=== PATIENT | male | born 1970 | race Caucasian/White ===

== ENCOUNTER 2016-10-04 09:36 | Emergency (ER) | payer BC ==
[2016-10-04 09:52] VITALS: BP 144/99
--- NOTE | 2016-10-04 10:13 | UC ---
Hand/Wrist HPI - HPI Summary HPI Summary: While doing yardwork was struck directly on thumb joint with wooden branch then. Since then has had progressively worse pain with a little swelling, very little ROM at this point. Had small amt blood at the time, now pinpoint scab. No prior fx or sx. - History Of Current Complaint Chief Complaint: UCUpperExtremity Stated Complaint: THUMB INJURY Time Seen by Provider: 10/04/16 10:06 Hx Obtained From: Patient ?: No Onset/Duration: Sudden Onset Severity Initially: Mild Severity Currently: Moderate Character Of Pain: Dull, Aching, Stiffness Aggravating Factor(s): Movement Associated Signs And Symptoms: Positive: Swelling, Redness Related History: Dominant Hand Right - for manual tasks, Dominant Hand Left - for writing - Allergies/Home Medications Allergies/Adverse Reactions: Allergies Allergy/AdvReac Type Severity Reaction Status Date / Time Tree Nuts Allergy Swelling Verified 10/04/16 09:52 Of Face,Lips,& Throat Home Medications: Home Medications Amlodipine Besylate [Norvasc 5 mg tab] 5 mg PO DAILY 10/04/16 [History Confirmed 10/04/16] PMH/Surg Hx/FS Hx/Imm Hx Endocrine History Of: Denies: Diabetes, Thyroid Disease, Hyperthyroidism, Hypothyroidism Cardiovascular History Of: Reports: Hypertension Denies: Cardiac Disorders, Pacemaker/ICD Respiratory History Of: Denies: COPD, Asthma GI/ History Of: Denies: Ulcer Neurological History Of: Denies: TIA, Seizures Psychological History Of: Denies: Anxiety, Depression - Surgical History Surgical History: Yes Surgery Procedure, Year, and Place: wisdom teeth(1984), broken arm(1986), lt knee surgery - Family History Known Family History: Positive: Hypertension - Social History Lives: With Family Alcohol Use: Rare Substance Use Type: None Smoking Status (MU): Never Smoked Tobacco Review of Systems Constitutional: Negative Skin: Other - PW Eyes: Negative ENT: Negative Respiratory: Negative Cardiovascular: Negative Gastrointestinal: Negative Genitourinary: Negative Motor: Decreased ROM Neurovascular: Negative Musculoskeletal: Negative Neurological: Negative Psychological: Negative All Other Systems Reviewed And Are Negative: Yes Physical Exam Triage Information Reviewed: Yes Appearance: Well-Appearing, No Pain Distress, Well-Nourished Vital Signs: Initial Vital Signs Temp 97.8 F 10/04/16 09:48 Pulse 60 10/04/16 09:48 Resp 18 10/04/16 09:48 BP 144/99 10/04/16 09:48 Pulse Ox 97 10/04/16 09:48 Vital Signs Reviewed: Yes Eye Exam: Normal Eyes: Positive: Conjunctiva Clear ENT Exam: Normal ENT: Positive: Normal ENT inspection, Hearing grossly normal, Pharynx normal, TMs normal Dental Exam: Normal Neck exam: Normal Respiratory Exam: Normal Respiratory: Positive: Chest non-tender, Lungs clear, Normal breath sounds, No respiratory distress, No accessory muscle use Cardiovascular Exam: Normal Cardiovascular: Positive: RRR, No Murmur Musculoskeletal Exam: Other - tender at R thumb IP joint Musculoskeletal: Positive: ROM Limited @ - thumb IP joint Neurological Exam: Normal Neurological: Positive: Alert Psychological Exam: Normal Skin Exam: Other - PW over R thumb IP joint Hand/Wrist Course/Dx - Differential Dx/Diagnosis Provider Diagnoses: R thumb IP infection due to puncture wound. R thumb contusion - Physician Notifications Discussed Patient Care With: Dr. Lopez Time Discussed With Above Provider: 11:20 Instructed by Provider To: Have Pt Call For Appt. Discharge - Discharge Plan Condition: Stable Disposition: HOME Prescriptions: Cephalexin CAP* [Keflex 500 CAP*] 500 mg PO QID #20 cap Patient Education Materials: Contusion in Adults (ED) Referrals: Harjeet Lopez MD [Medical Doctor] - Additional Instructions: As we discussed, your symptoms may simply be from the crush injury you received from the branch. However, since you have a puncture wound over the joint, I am treating you for possible joint infection and asking you to follow up with the eating disorder specialist. Call them today to make an appointment for tomorrow afternoon. Take the antibiotics I prescribed and keep the hand elevated as much as possible while you await follow-up.
--- NOTE | 2016-10-04 10:32 | RAD ---
INDICATION: Right thumb injury. TECHNIQUE: 3 views of the right thumb were obtained. FINDINGS: There is soft tissue present. The bones are normal alignment. No fracture or radiopaque foreign body is seen. Joint spaces appear maintained. IMPRESSION: SOFT TISSUE SWELLING, NO FRACTURE OR RADIOPAQUE FOREIGN BODY IS SEEN.
== END 2016-10-04 11:35 | disposition home or self-care (01) ==
LOC: UCEAST 09:36
DX: S61.011A Laceration without foreign body of right thumb without damage to nail, initial encounter (principal); L08.9 Local infection of the skin and subcutaneous tissue, unspecified; W22.8XXA Striking against or struck by other objects, initial encounter; Y93.9 Activity, unspecified; Y99.9 Unspecified external cause status; I10 Essential (primary) hypertension; Z91.018 Allergy to other foods
CPT/HCPCS: 99212; G0463

== ENCOUNTER 2018-05-17 15:31 | Emergency (ER) | payer BC ==
--- OUTSIDE RECORDS SUMMARY | 2018-05-17 15:41 | XMS REPORT | Continuity of Care Document ---
:1970 External Reference #:[id number] Author Name Tutu Mast D.O. Address [address] [place] [address] Care Team Providers Name Role Phone HCP given Primary Care Physician Unavailable Payers Type Date Identification Numbers Payment Provider Subscriber Policy Number: [id number] Cordelia Nichole PayID: [id number] [address] [place] [address] Advance Directives Description No Information Available Problems Date Description Provider Status Onset: 07/31/2004 Asthma without status asthmaticus Thomas Velazquez M.D. Active Onset: 04/08/2015 Essential hypertension Thomas Velazquez M.D. Active Family History Date Family Member(s) Problem(s) Comments Father None Father Hypertension Mother Breast Cancer in remission tested for breast cancer gene and was pos - pos fam hx in cousins of hers- he was advised that he is at some increased risk if positive (he has not been tested) and that gene may be passed onto his daughter : (2014) Mother due to Stroke hemorrhagic no hbp and (age 75 Years) chol was fine First Daughter Micheline First Daughter 04/10/02 Number of Siblings Siblings: 2 Brother And 1 Sister PT Is 2ND Of Three Children Order Patient is the second of three children First Brother None First Sister None Paternal Grandfather CABG,Stroke Maternal Grandmother Lung Cancer Social History Type Date Description Comments Sex Unknown Education Highest Level Completed NOS College Marital Status Lives With Spouse Lives With Daughter Diet Healthy, Well Balanced WATCHES SALT Diet Diet Recall 24 HR supper ham mashed pot and corn w water after supper - cup hot deena breakfast cheerios and coffee lunch=salad, cooked chicken, soda Smoke-Free Home is smoke-free Work Status 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 Tobacco Use Start: Unknown Never Smoked Cigarettes Tobacco Use Reviewed: 06/02/15 Denies Cigarette Use Smoking Status Reviewed: 05/06/18 Denies Cigarette Use ETOH Use Rarely consumes alcohol Recreational Drug Use Denies Drug Use Tobacco Use Start: Unknown Patient has never smoked Exercise Type/Frequency Exercises sporadically WALKS ADVISED TO ENGAGE IN 30-MIN 5X /WK. does 10,000 steps a day Sun Exposure Uses sunscreen Seat Belt/Car Seat always uses seat belt Currently Active Patient is currently sexually active Contraceptive Methods 08/2009 Vasectomy Allergies, Adverse Reactions, Alerts Description No Known Drug Allergies Medications Medication Date Status Form Strength Qnty SIG Indications Ordering Provider Transderm-Scop 05/06/ Hx Patches 1mg/3Days 6unit apply 1 Sopchak, (1.5 MG) 2018 - 72HR s patch to Tutu, 06/05/ hairless D.O. 2019 area behind the ear at least 4 hours prior to exposure and every 3 days as needed Losartan 12/09/ Active Tablets 100mg 90tab take one I10 Sopchak, Potassium 2018 s tablet by Tutu, mouth every D.O. morning for high blood pressure (to replace valsartan) Chlorthalidone 10/30/ Active Tablets 25mg 90tab 1 by mouth Sopchak, 2018 s every day Tutu, D.O. Amlodipine 10/03/ Active Tablets 5mg 90tab take 1 Sopchak, Besylate 2018 s tablet by Tutu, mouth once D.O. daily for high blood pressure Proventil HFA 10/02/ Active Aerosol 108(90Bas 13.4g inhale 2 J45.909 Thomas 2016 e) m puffs by A. mcg/Act mouth every Klepack, 3-4 hours M.D. as needed for asthma Valsartan 10/03/ Hx Tablets 160mg 90tab 1 by mouth Sopchak, 2018 - s every day Tutu, 12/09/ D.O. 2018 Cephalexin 10/04/ Hx Capsules 500mg 20cap take 1 Unknown 2017 - s capsule by 10/09/ mouth four 2017 times a day x 5 days Doxycycline 03/15/ Hx Capsules 100mg 42cap 1 every day Z71.89 Thomas Hyclate 2015 - starting 2 A. 05/14/ days before Caroline, 2015 travel and M.D. every day for 4 weeks after returning Typhoid Vaccine 03/15/ Hx 4unit 1 every Z71.89 Thomas Live Oral 2015 - s other day A. 06/06/ for 4 doses Caroline, 2016 M.D. Amlodipine 05/23/ Hx Tablets 5mg 90tab 1 every day I10 Sopshalondak Besylate 2015 - for blood Tutu, 10/03/ pressure D.O. 2017 Amlodipine 04/21/ Hx Tablets 10mg 90tab 1 by mouth I10 Thomas Besylate 2014 - s every day A. 05/23/ (note Caroline, 2015 change in M.D. strength of pill) Amlodipine 04/02/ Hx Tablets 5mg 90tab take 2 I10 Sopshalondak Besylate 2014 - tablet by Tutu, 04/21/ mouth once D.O. 2014 daily for high blood pressure Clarithromycin 09/09/ Hx 250mg 20uni 1 po bid 466.0 Thomas 2010 - until gone A. 09/19/ Caroline 2010 M.D. use this instead of the brand name Benzonatate 05/16/ Hx Capsules 200mg 30cap 1 po tid, 786.2 Ankush, 2009 - s prn Phillip 05/22/ M.D. 2010 Amoxicillin 10/28/ Hx Capsules 500mg 40cap 2 tab po 461.8 Ankush 2009 - s bid x 10 Phillip, 05/22/ days M.D. 2010 Tamiflu 11/08/ Hx Capsules 75mg 10cap 1 po qd V07.2 Thomas 2008 - s A. 07/06/ Caroline 2009 M.D. Metronidazole 08/13/ Hx Tablets 250mg 21tab 1 tid x 7d 787.91 Thomas 2008 - s A. 08/20/ Caroline, 2008 M.D. Cipro 08/03/ Hx Tablets 500mg/ 787.91 Unknown 2008 - 2008 Metronidazole 08/03/ Hx Tablets 500mg 42tab 1 po bid 787.91 Unknown 2008 - s 2008 Zithromax 04/01/ Hx Tablets 250mg 1Pack Two Tablets 466.0 Thomas 2007 - PO Day 1 A. 04/08/ Then 1 Caroline 2007 Tablet PO M.D. Day 2-5 Amoxicillin 09/25/ Hx Tablets 500mg 30tab 1 PO tid 461.0 Ankush 2007 - s For Phillip, 10/05/ Sinusitis M.D. 2007 Amoxicillin 09/11/ Hx Capsules 500mg 28cap 1 tid for 461.0 Thomas 2005 - s 14 days for A. 09/25/ infection Caroline 2004 M.D. Albuterol 08/01/ Hx Aerosol 90mcg/Dos 2unit 2 puffs q4h J45.909 Thomas 1985 - e s for A. 10/02/ wheezing Caroline 2016 Prevention Annette Medications Administered in Office Medication Date Status Form Strength Qnty SIG Indications Ordering Provider H1N1 Swine Flu Administered Injection Nurse's Vaccine 010 Schedule Immunizations CPT Code Status Date Vaccine Lot # [id number] Given 02/17/2018 Influenza Virus Vaccine, Quadrivalent, Split, Im Use 02919 Given 03/01/2017 Influenza Virus Vaccine, Quadrivalent, Split, Preservative Free 08563 Given 10/05/2016 Hep A, Adult [id number] 51528 Given 03/16/2016 Typhoid Vaccine Oral 17520 Given 03/15/2016 Hep A, Adult [id number] 04198 Given 02/20/2016 Influenza Virus Vaccine, Quadrivalent, Split, Im Use U-Flu Given 03/08/2015 Influenza,Unspecified 24333 Given 03/23/2013 Flu, Split Virus >3 State Vaccine 21104 Given 09/09/2010 Pneumococcal Immunization [id number] 65447 Given 06/20/2009 Flu Vaccine; Split Virus OKpanda [facility] [id number] 20900 Given 04/07/2008 Adacel or Boostrix, TDaP [id number] 00284 Given 01/31/2005 Td Immunization 01382 Given 07/31/2004 Hep B Immunization, Adult 87243 Given 07/31/2004 Td Immunization Vital Signs Date Vital Result Comment 05/06/2018 11:44am BP Systolic 120 mmHg BP Diastolic 70 mmHg Weight 201.00 lb with shoes 11/04/2017 3:01pm BP Systolic 144 mmHg BP Diastolic 76 mmHg BP Systolic Recheck 115 mmHg BP Diastolic Recheck 78 mmHg Weight 194.00 lb 10/30/2017 10:18am BP Systolic 135 mmHg in am at home BP Diastolic 93 mmHg in am at home 10/29/2017 10:17am BP Systolic 138 mmHg at home in am BP Diastolic 98 mmHg at home in am 10/23/2017 3:51pm BP Systolic 150 mmHg per pt reporting BP Diastolic 101 mmHg per pt reporting BP Systolic Recheck 145 mmHg BP Diastolic Recheck 105 mmHg 10/22/2017 3:51pm BP Systolic 145 mmHg BP Diastolic 105 mmHg 10/07/2017 12:22pm BP Systolic 130 mmHg per pt reporting BP Diastolic 90 mmHg per pt reporting 10/03/2017 11:05am BP Systolic 146 mmHg BP Diastolic 96 mmHg BP Systolic Recheck 147 mmHg BP Diastolic Recheck 100 mmHg Height 68 inches 5'8" Weight 199.00 lb BMI (Body Mass Index) 30.3 kg/m2 07/17/2017 4:42pm BP Systolic 152 mmHg right arm BP Diastolic 85 mmHg right arm Body Temperature 98.6 F 04/05/2017 8:58am BP Systolic 134 mmHg BP Diastolic 90 mmHg Height 68 inches 5'8" Weight 197.00 lb BMI (Body Mass Index) 30.0 kg/m2 10/05/2016 10:59am BP Systolic 130 mmHg k BP Diastolic 82 mmHg k Heart Rate 70 /min rrr Weight 197.00 lb w/shoes 06/07/2016 9:12am BP Systolic 128 mmHg BP Diastolic 88 mmHg Heart Rate 80 /min Respiratory Rate 16 /min Body Temperature 98.3 F Height 69.25 inches 5'9.25" with boots Weight 199.00 lb with boots BMI (Body Mass Index) 29.2 kg/m2 03/05/2016 9:09am BP Systolic 128 mmHg BP Diastolic 82 mmHg Height 68 inches 5'8" Weight 192.00 lb BMI (Body Mass Index) 29.2 kg/m2 10/03/2015 9:06am BP Systolic 132 mmHg BP Diastolic 82 mmHg Weight 192.00 lb with sneakers 06/02/2015 10:37am BP Systolic 126 mmHg BP Diastolic 80 mmHg Heart Rate 70 /min Respiratory Rate 16 /min Height 68 inches 5'8" Weight 190.00 lb BMI (Body Mass Index) 28.9 kg/m2 05/23/2015 4:31pm BP Systolic 128 mmHg BP Diastolic 76 mmHg 05/06/2015 9:01am BP Systolic 124 mmHg K BP Diastolic 76 mmHg K Heart Rate 70 /min Respiratory Rate 16 /min Weight 190.00 lb w/shoes 04/08/2015 8:43am BP Systolic 138 mmHg BP Diastolic 90 mmHg Weight 190.00 lb with sneakers 04/02/2015 11:04am BP Systolic 130 mmHg BP Diastolic 82 mmHg BP Systolic Recheck 148 mmHg right arm recheck BP Diastolic Recheck 95 mmHg right arm recheck BP Systolic Standing Resting Right Arm 138 mmHg left arm recheck BP Diastolic Standing Resting Right Arm 98 mmHg left arm recheck Heart Rate 70 /min Height 69 inches 5'9" Weight 190.00 lb BMI (Body Mass Index) 28.1 kg/m2 04/28/2013 2:17pm BP Systolic 140 mmHg BP Diastolic 90 mmHg BP Systolic Recheck 144 mmHg BP Diastolic Recheck 88 mmHg Height 69 inches 5'9" Weight 178.00 lb BMI (Body Mass Index) 26.3 kg/m2 09/09/2010 11:01am BP Systolic 124 mmHg BP Diastolic 88 mmHg Body Temperature 98.1 F Height 68.25 inches 5'8.25" Weight 180.00 lb BMI (Body Mass Index) 27.2 kg/m2 05/16/2010 11:00am BP Systolic 126 mmHg BP Diastolic 72 mmHg Heart Rate 93 /min Body Temperature 100.4 F Weight 179.00 lb 10/28/2009 4:15pm BP Systolic 129 mmHg BP Diastolic 86 mmHg Heart Rate 80 /min Respiratory Rate 18 /min Body Temperature 98.8 F Weight 175.00 lb 09/28/2009 8:42am BP Systolic 128 mmHg BP Diastolic 70 mmHg Weight 175.00 lb w/sneakers 07/07/2009 2:05pm BP Systolic 142 mmHg BP Diastolic 84 mmHg BP Systolic Recheck 144 mmHg BP Diastolic Recheck 80 mmHg Heart Rate 70 /min Respiratory Rate 16 /min Height 67.75 inches 5'7.75" Weight 182.00 lb BMI (Body Mass Index) 27.9 kg/m2 08/13/2008 9:57am BP Systolic 110 mmHg BP Diastolic 80 mmHg Body Temperature 98.6 F Weight 175.00 lb Last Menstrual Period 0 08/06/2008 1:10pm BP Systolic 120 mmHg BP Diastolic 82 mmHg Weight 178.00 lb 04/01/2008 1:45pm BP Systolic 118 mmHg BP Diastolic 80 mmHg Body Temperature 98.2 F Height 68.6 inches 5'8.60" Weight 178.00 lb BMI (Body Mass Index) 26.6 kg/m2 Last Menstrual Period 0 12/22/2007 10:59am BP Systolic 130 mmHg BP Diastolic 78 mmHg Heart Rate 80 /min Respiratory Rate 16 /min Height 68.6 inches 5'8.60" Weight 179.00 lb BMI (Body Mass Index) 26.7 kg/m2 09/26/2007 1:20pm BP Systolic 138 mmHg BP Diastolic 80 mmHg Body Temperature 98.5 F Height 70 inches 5'10" Weight 177.00 lb BMI (Body Mass Index) 25.4 kg/m2 Last Menstrual Period 0 09/11/2004 1:54pm BP Systolic 128 mmHg BP Diastolic 74 mmHg Heart Rate 80 /min Respiratory Rate 16 /min Body Temperature 98.3 F Height 70 inches 5'10" Weight 182.00 lb BMI (Body Mass Index) 26.1 kg/m2 07/31/2004 10:46am BP Systolic 128 mmHg BP Diastolic 90 mmHg BP Systolic Recheck 134 mmHg Large Cuff BP Diastolic Recheck 72 mmHg Large Cuff Heart Rate 80 /min RRR Respiratory Rate 16 /min Easy Height 70 inches 5'10" Weight 185.00 lb Waist 38 In WGT AT [place] 170-75 BMI (Body Mass Index) 26.5 kg/m2 Results Test Date Facility Test Result H/L Range Note Basic Metabolic Panel 11/15/2017 [facility] Sodium 138 mmol/L N 135- 145 [phone] Potassium 3.5 mmol/L N 3.5-5.0 Chloride 99 mmol/L Low 101-111 Co2 Carbon Dioxide 31 mmol/L N 22-32 Anion Gap 8 mmol/L N 2-11 Glucose 102 mg/dL High 70-100 Blood Urea Nitrogen 23 mg/dL N 6-24 Creatinine 0.86 mg/dL N 0.67-1.17 BUN/Creatinine Ratio 26.7 High 8-20 Calcium 9.6 mg/dL N 8.6-10.3 Egfr Non- 95.3 >60 Egfr 115.3 >60 1 Lipid Profile (Trig/Chol/HDL) 09/25/2017 [facility] Triglycerides 176 mg/dL 2 [phone] Cholesterol 202 mg/dL 3 HDL Cholesterol 40.4 mg/dL 4 LDL Cholesterol 126 mg/dL 5 Basic Metabolic Panel 09/25/2017 [facility] Sodium 139 mmol/L N 139- 145 [phone] Potassium 4.2 mmol/L N 3.5-5.0 Chloride 103 mmol/L N 101-111 Co2 Carbon Dioxide 28 mmol/L N 22-32 Anion Gap 8 mmol/L N 2-11 Glucose 88 mg/dL N 70-100 Blood Urea Nitrogen 17 mg/dL N 6-24 Creatinine 0.91 mg/dL N 0.67-1.17 BUN/Creatinine Ratio 18.7 N 8-20 Calcium 9.5 mg/dL N 8.6-10.3 Egfr Non- 89.3 >60 Egfr 114.8 >60 6 Rapid Influenza A 07/18/2017 [facility] Influenza A NEGATIVE Negative 7 & B Molecular [phone] Molecular Influenza B Molecular NEGATIVE Negative Laboratory test 07/17/2017 [facility] Influenza A & B SEE RESULT 8 finding [phone] Request BELOW Urine Micro Inhouse 10/05/2016 In House Ua WBC - 9 Ua RBC - Ua Casts - Ua Epi - Ua Other - Ua Glucose - Ua Bilirubin - Ua Ketones - Ua Specific [place] 1.020 Ua Blood - Ua PH 6.0 Ua Protein tr Ua Urobilinogen - Ua Nitrite - Ua Leukocytes - Urine Micro Inhouse 06/07/2016 In House Ua WBC - Ua RBC - Ua Casts - Ua Epi - Ua Other - Ua Glucose -- Ua Bilirubin - Ua Ketones 1.020 Ua Specific [place] - Ua Blood 6.0 Ua PH - Ua Protein - Ua Urobilinogen - Ua Nitrite - Basic Metabolic Panel 03/05/2016 [facility] Sodium 138 mmol/L N 133- 145 [phone] Potassium 4.3 mmol/L N 3.5-5.0 Chloride 103 mmol/L N 101-111 Co2 Carbon Dioxide 29 mmol/L N 22-32 Anion Gap 6 mmol/L N 2-11 Glucose 96 mg/dL N 70-100 Blood Urea Nitrogen 15 mg/dL N 6-24 Creatinine 0.78 mg/dL N 0.67-1.17 BUN/Creatinine Ratio 19.2 N 8-20 Calcium 9.6 mg/dL N 8.6-10.3 Egfr Non- 107.2 N >60 Egfr 137.8 N >60 10 Laboratory test finding 03/05/2016 [facility] Ast (Sgot) 20 U/L N 13- 39 11 [phone] Lipid Profile 03/05/2016 [facility] Triglycerides 160 mg/dL N 12 (Trig/Chol/HDL) [phone] Cholesterol 169 mg/dL N 13 HDL Cholesterol 38.9 mg/dL N 14 LDL Cholesterol 98 mg/dL N 15 Urine Micro Inhouse 10/03/2015 In House Ua WBC - Ua RBC - Ua Casts - Ua Epi - Ua Other - Ua Glucose - Ua Bilirubin - Ua Ketones - Ua Specific [place] 1.025 Ua Blood - Ua PH 5.0 Ua Protein tr Ua Urobilinogen - Ua Nitrite - Ua Leukocytes - Occult Blood,Triple 07/19/2015 In House Misc negative x3 Urine Micro Inhouse 06/02/2015 In House Ua WBC - Ua RBC - Ua Casts - Ua Epi - Ua Other - Ua Glucose - Ua Bilirubin - Ua Ketones - Ua Specific [place] 1.010 Ua Blood - Ua PH 6.5 Ua Protein - Ua Urobilinogen - Ua Nitrite - Ua Leukocytes - Urine Micro Inhouse 04/08/2015 In House Ua WBC - Ua RBC - Ua Casts - Ua Epi - Ua Other - Ua Glucose - Ua Bilirubin - Ua Ketones - Ua Specific [place] 1.015 Ua Blood tr Ua PH 6.5 Ua Protein tr Ua Urobilinogen 0.2 Ua Nitrite - Ua Leukocytes - Lipid Profile 04/05/2015 [facility] Triglycerides 124 mg/dL N 16 (Trig/Chol/HDL) [phone] Cholesterol 192 mg/dL N 17 HDL Cholesterol 39.5 mg/dL N 18 LDL Cholesterol 128 mg/dL N 19 Laboratory test 04/05/2015 [facility] TSH (Thyroid 1.25 ?IU/mL N 0.34 -5.60 20 finding [phone] Stim Horm) Vitamin D Total 25(Oh) 16.6 ng/mL Low 30-50 21 Comp Metabolic Panel 04/05/2015 [facility] Sodium 137 mmol/L N 133- 145 [phone] Potassium 4.7 mmol/L N 3.5-5.0 Chloride 103 mmol/L N 101-111 Co2 Carbon Dioxide 28 mmol/L N 22-32 Anion Gap 6 mmol/L N 2-11 Glucose 83 mg/dL N 70-100 Blood Urea Nitrogen 21 mg/dL N 6-24 Creatinine 0.96 mg/dL N 0.67-1.17 BUN/Creatinine Ratio 21.9 High 8-20 Calcium 9.5 mg/dL N 8.6-10.3 Total Protein 6.8 g/dL N 6.4-8.9 Albumin 4.4 g/dL N 3.2-5.2 Globulin 2.4 g/dL N 2-4 Albumin/Globulin Ratio 1.8 N 1-3 Total Bilirubin 0.40 mg/dL N 0.2-1.0 Alkaline Phosphatase 72 U/L N 34-104 Alt 23 U/L N 7-52 Ast 17 U/L N 13-39 Egfr Non- 84.7 N >60 Egfr 108.9 N >60 22 CBC Auto Diff 04/05/2015 [facility] White Blood Count 4.9 10^3/uL N 4.8-10.8 [phone] Red Blood Count 5.42 10^6/uL High 4.0-5.4 Hemoglobin 15.9 g/dL N 14.0-18.0 Hematocrit 47 % N 42-52 Mean Corpuscular Volume 87 fL N 80-94 Mean Corpuscular Hemoglobin 29 pg N 27-31 Mean Corpuscular HGB Conc 33 g/dL N 31-36 Red Cell Distribution Width 14 % N 10.5-15 Platelet Count 218 10^3/uL N 150-450 Mean Platelet Volume 8 um3 N 7.4-10.4 Abs Neutrophils 2.5 10^3/uL N 1.5-7.7 Abs Lymphocytes 1.8 10^3/uL N 1.0-4.8 Abs Monocytes 0.5 10^3/uL N 0-0.8 Abs Eosinophils 0.2 10^3/uL N 0-0.6 Abs Basophils 0 10^3/uL N 0-0.2 Abs Nucleated RBC 0 10^3/uL N Granulocyte % 50.2 % N 38-83 Lymphocyte % 35.7 % N 25-47 Monocyte % 9.9 % High 1-9 Eosinophil % 3.6 % N 0-6 Basophil % 0.6 % N 0-2 Nucleated Red Blood Cells % 0.1 N Surgical 09/09/2009 [facility] Surgical 23 Pathology [phone] Pathology <SEE NOTE> Order 07/07/2009 [facility] Bronchospasm mild restric only Eval Stool Cult 08/03/2008 [facility] Stool Cult neg 24 [phone] Sensitivity Laboratory 08/03/2008 [facility] C. Difficile NEG 25 test finding [phone] Toxin A B O P: Giardia/Crypto Screen neg 26 Shiga Toxin 1 And 2 (Ehec) N^NEGATIVE BY IM <SEE NOTE> 27 E.Coli 0157:H7 NEGATIVE FOR E C <SEE NOTE> 28 Campylobacter NO GROWTH OF CAM <SEE NOTE> 29 Stool Specimen 08/03/2008 [facility] Stool Specimen P^PASTY^STCON 30 Description [phone] Description Laboratory test 08/03/2008 [facility] Stool For WBCS RARE POLY Negative finding [phone] (Polys) Lipid Profile 12/24/2007 [facility] Triglyceride 117 mg/dL 40-200 31 (Trig/Chol/HDL) [phone] Cholesterol 201 mg/dL High Less Than 200 32 High Density Lipoprotein 37 mg/dL Low 40-60 33 Cholesterol/HDL Ratio 5.43 AVERAGE High 1-4.97 Low Density Lipoprotein 141 mg/dL High Less Than 100 34 Laboratory test finding 07/31/2004 In House Urine Microscopic Inhouse NEG Ua Inhouse 07/31/2004 In House Ua Glucose NEG Ua Bilirubin NEG Ua Ketones NEG Ua Specific [place] 1.015 Ua Blood NEG Ua PH 5.0 Ua Protein NEG Ua Urobilinogen NEG Ua Nitrite NEG Ua Leukocytes NEG CBC With Electronic 07/31/2004 [facility] White Blood 6.3 CUMM 4.8- 10.8 Diff [phone] Count Abs Basophils 0 0-0.2 Abs Eosinophils 0.2 0-0.6 Abs Grans 3.8 1.5-7.7 Abs Lymphs 1.9 1.0-4.8 Abs Mononuclear 0.4 0-0.8 Basophil % 0.3 % 0-2 Hematocrit 47 % 42-52 Hemoglobin 16.3 g/dL 14.0-18.0 Eosinophil % 2.5 % 0-6 Gran % 60.4 % 38-83 Lymph % 29.9 % 20-45 Mean Corpuscular HGB Cone 35 g/dL 32-36 Mean Corpuscular Hemoglob 30 pg 27-31 Mean Corpuscular Volume 86 um3 80-94 Mean Platelet Volume 7.9 um3 7.4-10.4 Mononuclear % 6.9 % 1-9 Platelet Count 254 CUMM 150-450 Red Cell Count 5.41 CUMM 4.6-6.2 Redcell Distribution WDTH 13 % 10.5-15 Laboratory test 07/31/2004 [facility] LDL Direct 108 mg/dL High Less Than 35 finding [phone] 100 Lipid Profile 07/31/2004 [facility] Cholesterol/ 5.14 AVERAGE High 1- 4.97 (Trig/Chol/HDL) [phone] HDL Ratio Cholesterol 185 mg/dL Less Than 200 36 Triglyceride 325 mg/dL High 40-200 High Density Lipoprotein 36 mg/dL Low 40-60 37 Low Density Lipoprotein 84 mg/dL Less Than 100 38 1 Because ethnic data is not always readily available, this report includes an eGFR for both -Americans and non- Americans. The National Kidney Disease Education Program (NKDEP) does not endorse the use of the MDRD equation for patients that are not between the ages of 18 and 70, are , have extremes of body size, muscle mass, or nutritional status, or are non- or non-. According to the National Kidney Foundation, irrespective of diagnosis, the stage of the disease is based on the level of kidney function: Stage Description GFR(mL/min/1.73 m(2)) 1 Kidney damage with normal or decreased GFR 90 2 Kidney damage with mild decrease in GFR 60-89 3 Moderate decrease in GFR 30-59 4 Severe decrease in GFR 15-29 5 Kidney failure <15 (or dialysis) 2 Desirable: <150 Borderline High: 150-199 High: 200-499 Very High: >500 3 Desirable: <200 Borderline High: 200-239 High: >239 4 Low: <40 Desirable: 40-60 High: >60 5 Desirable: <100 Near Optimal: 100-129 Borderline High: 130-159 High: 160-189 Very High: >189 6 Because ethnic data is not always readily available, this report includes an eGFR for both -Americans and non- Americans. The National Kidney Disease Education Program (NKDEP) does not endorse the use of the MDRD equation for patients that are not between the ages of 18 and 70, are , have extremes of body size, muscle mass, or nutritional status, or are non- or non-. According to the National Kidney Foundation, irrespective of diagnosis, the stage of the disease is based on the level of kidney function: Stage Description GFR(mL/min/1.73 m(2)) 1 Kidney damage with normal or decreased GFR 90 2 Kidney damage with mild decrease in GFR 60-89 3 Moderate decrease in GFR 30-59 4 Severe decrease in GFR 15-29 5 Kidney failure <15 (or dialysis) 7 Film Vault Supervisor: [id number] SEE RESULT BELOW Name: FACUNDO NICHOLE : [address]: Tutu Mast DO Acct: [id number] Unit: [id number] AGE: 46 Location: [facility] Re07/17/17 SEX: M Status: REG REF SPEC: [id number] ALYSSA: 07/17/17-[address]: Tutu Mast DO REQ: [id number] RECD: 07/18/17857 STATUS: COMP _ SOURCE: [facility]: ORDERED: Flu A B Request Procedure Result Reported Site Rapid Influenza A B Request Final 07/18/17- 1623 ML Specimen received for Influenza A/B Molecular testing * ML - Main Lab . END OF REPORT DEPARTMENT OF PATHOLOGY, [address] [place] [address] Duke Smart M.D. Director [facility] # [id number] 9 void, clear, yellow 10 Because ethnic data is not always readily available, this report includes an eGFR for both -Americans and non- Americans. The National Kidney Disease Education Program (NKDEP) does not endorse the use of the MDRD equation for patients that are not between the ages of 18 and 70, are , have extremes of body size, muscle mass, or nutritional status, or are non- or non-. According to the National Kidney Foundation, irrespective of diagnosis, the stage of the disease is based on the level of kidney function: Stage Description GFR(mL/min/1.73 m(2)) 1 Kidney damage with normal or decreased GFR 90 2 Kidney damage with mild decrease in GFR 60-89 3 Moderate decrease in GFR 30-59 4 Severe decrease in GFR 15-29 5 Kidney failure <15 (or dialysis) 11 FASTING losing weight 12 Desirable <150 Borderline high 150-199 High 200-499 Very High >500 13 Desirable <200 Borderline high 200-239 High >239 14 Low <40 Desirable: 40-60 High: >60 15 Desirable: <100 mg/dL Near Optimal: 100-129 mg/dL Borderline High: 130-159 mg/dL High: 160-189 mg/dL Very High: >189 mg/dL 16 Desirable <150 Borderline high 150-199 High 200-499 Very High >500 17 Desirable <200 Borderline high 200-239 High >239 18 Low <40 Desirable: 40-60 High: >60 19 Desirable: <100 mg/dL Near Optimal: 100-129 mg/dL Borderline High: 130-159 mg/dL High: 160-189 mg/dL Very High: >189 mg/dL 20 FASTING 21 FASTING 22 Because ethnic data is not always readily available, this report includes an eGFR for both -Americans and non- Americans. The National Kidney Disease Education Program (NKDEP) does not endorse the use of the MDRD equation for patients that are not between the ages of 18 and 70, are , have extremes of body size, muscle mass, or nutritional status, or are non- or non-. According to the National Kidney Foundation, irrespective of diagnosis, the stage of the disease is based on the level of kidney function: Stage Description GFR(mL/min/1.73 m(2)) 1 Kidney damage with normal or decreased GFR 90 2 Kidney damage with mild decrease in GFR 60-89 3 Moderate decrease in GFR 30-59 4 Severe decrease in GFR 15-29 5 Kidney failure <15 (or dialysis) 23 ---- RUN DATE: 09/13/09 [facility] NMI LIVE PAGE 1 RUN TIME: 1421 Specimen Inquiry RUN USER: INTERFACE -- Name: FACUNDO NICHOLE Status: REG REF Re09/09/09 Age/Sex: 38/M Unit#: [id number] Location: [facility] : 68 -- Specimen: [id number] SOUT Spec Date: 09/09/[address]: Hector kincaid MD Spec Type: SURGICAL P Received: 09/12/09-1134 Copies to: Thomas san MD SPECIMEN PORTIONS OF LEFT AND RIGHT VAS DEFERENS HISTORY PRE-OP DIAGNOSIS: Voluntary sterilization. GROSS DESCRIPTION Specimen received in formalin labelled Facundo Nichole, Portions of Left and Right Vas Deferens and consists of two vas deferen segments measuring 1.4 x 0.2 x 0.2 and 1.6 x 0.2 x 0.2 cm. One segment is inked black, both are serially sectioned and submitted entirely, one cassette. DIAGNOSIS Vasa deferentia, segmental resection: Fragments of vas deferens (two), completely transected. Signed Electronically by: TRENT CANTRELL 09/13/09 1421 -- -- DEPARTMENT OF PATHOLOGY, [address] [place] [address] [facility] Permit #[id number] Duke Smart M.D. Director Trent Cantrell M.D. Pouring Crane Operator Dir khalif -- 24 NEGATIVE FOR THE ENTERIC PATHOGENS - SALMONELLA, SHIGELLA, AND YERSINIA VIBRIO AND E. COLI 0157 NOT ROUTINELY TESTED FOR IN A STOOL CULTURE. PLEASE SUBMIT SAMPLE WITH SPECIFIC REQUEST FOR DESIRED ORGANISM(S). 25 TEST LIMITATIONS: The performance of specimens from pediatric patients has not been evaluated. A positive test confirms the presence of toxins A and/or B only. A physician must use the test results in conjunction with other diagnostic procedures and the patient's clinical condition to establish a diagnosis of C.difficile-associated disease. Isolates of C. sordellii may react with this test due to immunological identitiy of the C. sordellii toxins. Two distinct groups have been identified that can harbor C. difficile asymptomatically at very high rates. Colonization rates of up to 50% and higher have been reported in infants and rates of up to 32% in cystic fibrosis patients. N^NEGATIVE BY IMMUNOASSAY^CDT 26 Giardia and cryptosporidium antigen testing performed by immunoassay. If patient is immunocompromised or has traveled to or is from a developing country, a full ova and parasite exam with microscopic (OPMIC) is recommended. All samples will be held one month in case full ova and parasite testing is requested. Contact the Microbiology Department at [phone]. N^NEGATIVE BY IMMUNOASSAY^CRY N^NEGATIVE BY IMMUNOASSAY^ROMÁN 27 N^NEGATIVE BY IMMUNOCHROMATOGRAPHIC ASSAY^ST1 N^NEGATIVE BY IMMUNOCHROMATOGRAPHIC ASSAY^ST2 28 NEGATIVE FOR E COLI 0157:H7 29 NO GROWTH OF CAMPYLOBACTER AFTER 48 HOURS 30 NF^NONFORMED^STFORM GREENISH-BROWN^GREENISH-BROWN^STOTH 31 FASTING 32 CHOLESTEROL INTERPRETATION: Desirable: Less than 200 MG/DL Borderline-High Risk: 200-239 MG/DL High-Risk: 240 MG/DL and over 33 HDL INTERPRETATION: Undesirable: High Risk: Less than 40 MG/DL Desirable: Low Risk: Greater than 60 MG/DL 34 LDL INTERPRETATION: Low Risk Optimal Level: LDL Less than 100 MG/DL Near or Above Optimal: LDL 100-129 MG/DL Borderline High Risk: LDL 130-159 MG/DL High Risk: LDL 160-189 MG/DL Very High Risk: LDL Greater than 189 MG/DL 35 Classification: Near or above optimal . 36 Classification: Desirable . 37 Classification: Low . 38 CALCULATED LDL APPROXIMATES THE VALUE OF A DIRECT LDL MEASUREMENT. Classification: Optimal Level . Procedures Date Code Description Status 10/05/2016 86027 Spirometry Completed 06/07/2016 16771 Electrocardiogram Complete Completed 06/02/2015 62590 Spirometry Completed 04/08/2015 89100 Electrocardiogram Complete Completed 07/07/2009 64180 Bronchospasm Evaluation Pre & Post Completed 07/31/2004 48798 X-Ray Hand Three Or More Views Completed Encounters Type Date Location Provider Dx Diagnosis Office Visit 11/04/2017 Main Office Tutu Mast, I10 Essential (primary ) 2:45p D.O. 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 general adult medical exam w abnormal findings I10 Essential (primary) hypertension J45.909 Unspecified asthma, uncomplicated G47.30 Sleep apnea, unspecified E66.3 Overweight Z68.30 Body mass index (BMI) 30.0-30.9, adult Office Visit 07/17/2017 3:45p Main Office Tutu Mast J11.89 Influenza due to D.O. unidentified influenza virus w oth manifest Office Visit 04/05/2017 8:55a Main Office Tutu Mast, I10 Essential ( primary) D.O. hypertension J45.909 Unspecified asthma, uncomplicated Office Visit 10/05/2016 11:15a Main Office Thomas Fuentes J45.909 Unspecified asthmaCaroline M.D. uncomplicated I10 Essential (primary) hypertension Z41.8 Encntr for oth proc for purpose oth than [facility] Z23 Encounter for immunization Office Visit 06/07/2016 9:15a Main Office Thomas Fuentes Z00.00 Encntr for Annette Velazquez general adult medical exam w/o abnormal findings E66.3 Overweight Z68.29 Body mass index (BMI) 29.0-29.9, adult I10 Essential (primary) hypertension Office Visit 03/15/2016 3:25p Main Office Thomas Fuentes Z71.89 Other specified Annette Velazquez counseling Z23 Encounter for immunization Z41.8 Encntr for oth proc for purpose oth than [facility] Office Visit 03/05/2016 9:05a Main Office Thomas Fuentes J45.909 Unspecified Caroline morales M.D. uncomplicated I10 Essential (primary) hypertension E66.3 Overweight R06.83 Snoring Office Visit 10/03/2015 8:55a Main Office Thomas Fuentes J45.909 Unspecified Caroline morales M.D. uncomplicated I10 Essential (primary) hypertension E66.3 Overweight R06.83 Snoring Z71.3 Dietary counseling and surveillance Office Visit 06/02/2015 10:45a Main Office Thomas Fuentes J45.909 Unspecified Caroline morales M.D. uncomplicated I10 Essential (primary) hypertension Z00.00 Encntr for general adult medical exam w/o abnormal findings G47.30 Sleep apnea, unspecified E66.3 Overweight Z68.28 Body mass index (BMI) 28.0-28.9, adult Office Visit 05/23/2015 4:15p Main Office Thomas Velazquez, R60.0 Localized edema M.DTeresa I10 Essential (primary) hypertension M25.572 Pain in left ankle and joints of left foot Office Visit 05/06/2015 8:55a Main Office Thomas Cox Essential ( primary) Annette Velazquez hypertension Office Visit 04/08/2015 8:55a Main Office Thomas Cox Essential ( primary) Annette Velazquez hypertension E66.3 Overweight Z68.28 Body mass index (BMI) 28.0-28.9, adult Office Visit 04/02/2015 11:00a Main Office Tutu Mast, R03.0 Elevated D.O. blood-pressure reading, w/o diagnosis of htn I10 Essential (primary) hypertension Office Visit 04/28/2013 2:00p Main Office Tutu Mast, V70.0 Examination General D.O. Medical Routine AT Health Care Facility Office Visit 09/09/2010 10:45a Main Office Thomas Fuentes 466.0 Bronchitis Acute Annette Velazquez V65.49 Counseling Other Spec v03.82 Streptococcus Pneumoniae Vaccination Spec Other v07.2 Prophylactic Immunotherapy Office Visit 05/16/2010 10:40a Main Office Justina Hill, 461.8 Sinusitis Acute P.A. Other 786.2 Cough Office Visit 10/28/2009 4:00p Main Office Justina Hill 461.0 Sinusitis Acute P.A. Maxillary Office Visit 09/28/2009 8:40a Main Office Justina Hill, 796.2 Blood Pressure P.A. Reading Elevated W/O Hypertension V65.3 Dietary Surveillance & Counseling Office Visit 07/07/2009 2:00p Main Office Thomas Fuentes 493.90 Asthma Unspec W/O Annette Velazquez Status Asthmaticus 796.2 Blood Pressure Reading Elevated W/O Hypertension V25.09 Contraceptive Management Other 278.02 Overweight V70.0 Examination General Medical Routine AT Health Care Facility Office Visit 08/13/2008 9:30a Main Office Thomas Fuentes 787.91 Diarrhea Annette Velazquez Office Visit 08/06/2008 12:55p Main Office Thomas Fuentes 787.91 Diarrhea Annette Velazquez Office Visit 04/01/2008 1:45p Main Office Thomas Fuentes 466.0 Bronchitis Acute Annette Velazquez Office Visit 12/22/2007 10:45a Main Office Thomas Fuentes 493.90 Asthma Unspec W/O Annette Velazquez Status Asthmaticus V70.0 Examination General Medical Routine AT Health Care Facility V77.91 Screening For Lipoid Disorders 278.02 Overweight Office Visit 09/26/2007 1:15p Main Office Phillip Lechuga 461.0 Sinusitis Germania Bryant Maxillary Office Visit 09/11/2004 1:45p Main Office Thomas Fuentes 461.0 Sinusitis Acute Annette Velazquez Maxillary Office Visit 07/31/2004 10:45a Main Office Thomas Fuentes V70.0 Examination General Annette Velazquez Medical Routine AT Health Care Facility 238.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 at Main Ajwrbp2005/06/2018 - Tutu Mast D.O.I10 Essential (primary) hypertensionFollow up:as gpqygakkxD90.909 Unspecified asthma, srztwzimddrmuO58.30 Sleep apnea, ttfezhiktqgT45.899 Other termite technician (current) drug therapy
[2018-05-17 16:42] VITALS: BP 139/85
--- NOTE | 2018-05-17 16:59 | UC ---
Knee Pain HPI - HPI Summary HPI Summary: The patient is a 47-year-old male with a history of right knee pain 2 days. He states he felt a pop while walking. He denies twisting his knee. He states that the pain is worse immediately. His knee is not swollen. He states he has had a torn meniscus in his left knee and this feels similar. At rest the pain is minimal. - History of Current Complaint Chief Complaint: UCLowerExtremity Stated Complaint: RIGHT KNEE COMPLAINT Time Seen by Provider: 05/17/18 16:38 Hx Obtained From: Patient Onset/Duration: Sudden Onset, Lasting Days Severity Initially: Moderate Severity Currently: Mild Pain Intensity: 2 Pain Scale Used: 0-10 Numeric Character: Sharp Aggravating Factor(s): Movement, Weight Bearing Alleviating Factor(s): Rest Associated Signs And Symptoms: Positive: Negative Able to Bear Weight: Yes Related History: Similar Episode/Dx as - torn meniscus left knee Legs: 1 - pain here, stable joint, no effusion - Allergies/Home Medications Allergies/Adverse Reactions: Allergies Allergy/AdvReac Type Severity Reaction Status Date / Time Tree Nuts Allergy Swelling Verified 05/17/18 16:35 Of Face,Lips,& Throat Home Medications: Home Medications Ibuprofen TAB* [Advil TAB*] 400 mg PO Q6H PRN 05/17/18 [History Confirmed ] Losartan Potassium 25 mg PO DAILY 05/17/18 [History Confirmed 05/17/18] hydroCHLOROthiazide [Hydrochlorothiazide] 12.5 mg PO DAILY 05/17/18 [History Confirmed 05/17/18] PMH/Surg Hx/FS Hx/Imm Hx Previously Healthy: Yes Cardiovascular History: Hypertension - Surgical History Surgical History: Yes Surgery Procedure, Year, and Place: wisdom teeth(1984), broken arm(1986), lt knee surgery - Family History Known Family History: Positive: Hypertension - Social History Alcohol Use: Occasionally Substance Use Type: None Smoking Status (MU): Never Smoked Tobacco Review of Systems All Other Systems Reviewed And Are Negative: Yes Constitutional: Positive: Negative Skin: Positive: Negative Eyes: Positive: Negative ENT: Positive: Negative Respiratory: Positive: Negative Cardiovascular: Positive: Negative Gastrointestinal: Positive: Negative Genitourinary: Positive: Negative Motor: Positive: Negative Neurovascular: Positive: Negative Musculoskeletal: Positive: Arthralgia Neurological: Positive: Negative Psychological: Positive: Negative Physical Exam Vital Signs: Initial Vital Signs Temp 97.6 F 05/17/18 16:38 Pulse 68 05/17/18 16:38 Resp 16 05/17/18 16:38 BP 139/85 05/17/18 16:38 Pulse Ox 98 05/17/18 16:38 Diagnostics - Radiology No standard instances Radiology Interpretation Completed By: Radiologist Summary of Radiographic Findings: IMPRESSION: #. No traumatic injury evident. #. Mild osteoarthritis. Knee Pain Course/Dx - Differential Dx/Diagnosis Provider Diagnosis: Acute medial meniscus tear of right knee Discharge - Sign-Out/Discharge Documenting (check all that apply): Patient Departure All imaging exams completed and their final reports reviewed: Yes - Discharge Plan Condition: Stable Disposition: HOME Patient Education Materials: Meniscus Tear (ED) Referrals: Baljit Yu MD [Medical Doctor] - As Soon As Possible Additional Instructions: ice elevate aleve if needed for pain wear your knee brace - Billing Disposition and Condition Condition: STABLE Disposition: Home
== END 2018-05-17 17:45 | disposition home or self-care (01) ==
LOC: UCCORT 15:31
DX: S83.241A Other tear of medial meniscus, current injury, right knee, initial encounter (principal); Y93.01 Activity, walking, marching and hiking; Y92.9 Unspecified place or not applicable; I10 Essential (primary) hypertension
CPT/HCPCS: 99211; G0463